=== PATIENT | female | born 1985 | race Caucasian/White ===

== ENCOUNTER 2016-04-14 18:16 | Emergency (ER) | payer MEDICAID ==
[~2016-04-14] VITALS: Ht 160 cm; Wt 63.0 kg
[~2016-04-14 18:16] MED LIST: IBUP800T25 PO; PERCOCET PO; PREN1TAB62 PO
[2016-04-14 18:20] VITALS: Ht 160 cm; Wt 63.0 kg
[2016-04-14] MEDS ORDERED: SOD CHLORIDE 0.9% 2,000 ML IV STA (18:20)
[2016-04-14] MEDS ORDERED: DIPHTH/TET/ACEL PERTUSS (ADULT) 0.5 ML VIAL IM* ONE (18:30)
[2016-04-14] MEDS ORDERED: CEFAZOLIN 1 GM/50 ML (PMX) 50 ML IVPB SCH (18:30)
[2016-04-14] MEDS ORDERED: SILVER SULFADIAZINE 1% 25 GM CR TOP ONE (18:30)
--- NOTE | 2016-04-14 19:11 | ERD ---
ER Documentation Chief Complaint Date/Time DATE: 04/14/16 TIME: 19:09 Chief Complaint PT SPILLED BOILING WATER TO LEFT BUTTOCKS AND BACK. HPI This is a 30-year-old female who presents to the emergency room for evaluation of a burn to her left buttocks. The patient does state that she was at home and was cooking, however she states that while she was cooking a pot of boiling water fell off the stove and fell on her left thigh and buttock. The patient came to the ER today for evaluation. She denies any other jimenez in any areas of her body. ROS All systems reviewed and are negative except as per history of present illness. Medications Home Meds Discontinued Reported Medications Vit-Iron Fumarate-FA ( Vitamin Tablet) 1 Each Tablet, 1 TAB PO DAILY, TAB 02/09/15 Discontinued Scripts Oxycodone Hcl/Acetaminophen (Percocet) 1 Tab Tab, 2 TAB PO Q4H Y for PAIN LEVEL 6-10, #30 TAB Prov:SHERYL GALEAS MD 02/11/15 Ibuprofen* (Ibuprofen*) 800 Mg Tab, 800 MG PO Q8, #20 1 Refill Prov:SHERYL GALEAS MD 02/11/15 Allergies Allergies: Coded Allergies: No Known Drug Allergy (Verified Allergy, Mild, 04/14/16) PMhx/Soc History of Surgery: Yes (C SECTION 2X, GALLBLADDER) Anesthesia Reaction: No Hx Neurological Disorder: No Hx Respiratory Disorders: No Hx Cardiac Disorders: No Hx Psychiatric Problems: No Hx Miscellaneous Medical Probl: No Hx Alcohol Use: No Hx Substance Use: No Hx Tobacco Use: No Smoking Status: Unknown if ever smoked Physical Exam Vitals Vital Signs Date Time Temp Pulse Resp B/P Pulse Ox O2 Delivery O2 Flow Rate FiO2 04/14/16 18:20 98.1 58 16 105/59 100 Physical Exam INITIAL VITAL SIGNS: Reviewed by me GENERAL: The patient is well developed and appropriate for usual state of health in no apparent distress HEENT: Pupils equal, round, and reactive to light. EOMI. There is no scleral icterus. NECK: C-spine is soft and supple, there is no meningismus. There is no cervical lymphadenopathy. LUNGS: Clear to auscultation bilaterally. There are no rales, wheezes or rhonchi. HEART: Regular rate and rhythm, no murmurs, clicks, rubs or gallops. ABDOMEN: Soft, non-tender, non-distended. There are bowel sounds in all four quadrants. No rebound or guarding. EXTREMITIES: There is no peripheral cyanosis or edema. No focal swelling or erythema. NEUROLOGICAL: The patient moves all four extremities with 5/5 strength. Cranial nerves II - XII are intact. Normal gait. Alert and oriented SKIN: Second-degree burn with blistering over the left posterior thigh and 5 cm x 7 cm area of second-degree burn with blistering over the left lower portion of the back. Total burn surface area approximately 5% HEME/LYMPHATIC: There is no evidence of excessive bruising or lymphedema. PSYCHIATRIC: The patient does not appear anxious or depressed. Results 24 hrs Current Medications Medications (Trade) Dose Ordered Sig/Melba Route PRN Reason Start Time Stop Time Status Last Admin Dose Admin Sodium Chloride 2,000 ml @ 1,000 mls/hr Q2H STAT IV 04/14/16 18:20 04/14/16 20:19 04/14/16 18:35 Cefazolin Sodium (Ancef 1 Gm/50 ml (Pmx)) 50 ml @ 100 mls/hr ONCE IVPB 04/14/16 18:30 04/14/16 18:59 DC 04/14/16 18:34 Diphtheria/ Tetanus/Acell Pertussis (Adacel) 0.5 ml ONCE ONCE IM* 04/14/16 18:30 04/14/16 18:31 DC 04/14/16 18:35 Silver Sulfadiazine (Thermazene 1% 25 Gm) 1 applic ONCE ONCE TOP 04/14/16 18:30 04/14/16 18:31 DC 04/14/16 18:34 Procedures/MDM This 30-year-old female presents to the ER for evaluation of a burn. This patient did have a second-degree burn to the left posterior thigh, buttocks, and left portion of her back. Her total body surface area burn was approximately 5%. This patient did receive 2 L of fluid here in the emergency room, tetanus is updated, patient received 1 g of Ancef and will be discharged with a referral to the wound clinic and [facility]. This patient did have Silvadene applied in the emergency room and had her wound wrapped. There is no circumferential burn, and no signs of distal neurovascular compromise Departure Diagnosis: Primary Impression: Second degree burn of left thigh Condition: Stable HUY PARSONS DO Apr 14, 2016 19:11
[2016-04-14] MEDS ORDERED: ULT50 PO (19:13)
[2016-04-14 19:50] VITALS: BP 101/47; PULSE 69; RESP 16; TEMP 98.9
== END 2016-04-14 19:52 | disposition home or self-care (01) ==
LOC: E/R 18:16
DX: T24.212A Burn of second degree of left thigh, initial encounter (principal); X12.XXXA Contact with other hot fluids, initial encounter; Y92.009 Unspecified place in unspecified non-institutional (private) residence as the place of occurrence of the external cause; Z23 Encounter for immunization
CPT/HCPCS: 16000; 90471; 90715; 96374; J0690; J7030; Z7502; Z7610